=== PATIENT | female | born 1940 | race Hispanic/Latino ===

== ENCOUNTER → 2020-11-29 | Outpatient (CLI) | payer OTHER ==
[~2020-11-29] MED LIST: ALEN70TA80 PO; LEVO88TA7 PO; ROSU5TAB12 PO
== END | disposition home or self-care (01) ==
LOC: RAH 07:46
PROVIDERS: ATTEND Internal Medicine
DX: N63.21 Unspecified lump in the left breast, upper outer quadrant (principal); N64.59 Other signs and symptoms in breast; N64.52 Nipple discharge
CPT/HCPCS: 77066

== ENCOUNTER → 2021-12-04 | Outpatient (CLI) | payer OTHER | END | disposition home or self-care (01) | LOC: RAH 09:12 | PROVIDERS: ATTEND Internal Medicine | DX: R14.0 Abdominal distension (gaseous) (principal); N28.1 Cyst of kidney, acquired | CPT/HCPCS: 76700 ==

== ENCOUNTER → 2021-12-10 | Outpatient (CLI) | payer OTHER ==
[~2021-12-10] MED LIST changes: +IOHEXOL 350 MG/ML 100ML INFUS..BTL IV ONE
== END | disposition home or self-care (01) ==
LOC: RAH 08:23
PROVIDERS: ATTEND Internal Medicine Gastroenterology
DX: K57.30 Diverticulosis of large intestine without perforation or abscess without bleeding (principal); K44.9 Diaphragmatic hernia without obstruction or gangrene; I70.90 Unspecified atherosclerosis; R10.12 Left upper quadrant pain; R74.8 Abnormal levels of other serum enzymes; K59.00 Constipation, unspecified
CPT/HCPCS: 74170; Q9967

== ENCOUNTER → 2024-07-14 | Outpatient (CLI) | payer OTHER ==
[~2024-07-14] MED LIST changes: -IOHEXOL 350 MG/ML 100ML INFUS..BTL IV ONE; -ROSU5TAB12 PO; +ROSU5TAB51 PO
--- NOTE | 2024-07-14 11:29 | HMCIMG ---
US ABDOMINAL COMPLETE HISTORY: Abdominal pain COMPARISON: None TECHNIQUE: Multiple transverse and longitudinal ultrasound images of the abdomen were obtained. FINDINGS: Abdominal aorta and inferior vena cava are unremarkable. The visualized portion of the pancreas is within normal limits. Liver measures 16.4 cm. No gallstone is seen. Common duct measures 3 mm. No evidence of gallbladder wall thickening is seen. Both kidneys are seen. Right kidney measures 9 x 3.8 x 5 cm. Left kidney measures 9 x 4.8 x 3.9 cm. There is right renal cyst measuring 10 x 7 x 9 mm. No hydronephrosis is seen of the both kidneys. The spleen is grossly unremarkable. IMPRESSION: 1. No gallstone or ductal dilatation is seen. 2. No hydronephrosis is seen.
== END | disposition home or self-care (01) ==
LOC: RAH 09:49
PROVIDERS: ATTEND Internal Medicine
DX: N28.1 Cyst of kidney, acquired (principal)
CPT/HCPCS: 76700